=== PATIENT | female | born 1945 | race Caucasian/White ===

== ENCOUNTER 2020-11-26 20:42 | Emergency (ER) | payer MEDICARE, BC ==
[2020-11-26] MEDS ORDERED: Lidocaine 1% 30 ML SDV INJECT ONE (20:56)
[2020-11-26] MEDS ORDERED: Bacitracin Oint 1 GM U/D Packet TOP ONE (21:09)
--- NOTE | 2020-11-26 21:15 | EDM.PDOC ---
ED HPI GENERAL MEDICAL PROBLEM - General Chief Complaint: Laceration Stated Complaint: FISH HOOK IN HAND Time Seen by Provider: 11/26/20 20:55 Source of Information: Reports: Patient History Limitations: Reports: No Limitations - History of Present Illness INITIAL COMMENTS - FREE TEXT/NARRATIVE: This 75 yo female patient reports to the ED with a fishing hook in her left hand. The patient reports she attempted to remove the hook on her own, but was unable to get the hooks out. Onset: Today Duration: Minutes: Location: Reports: Upper Extremity, Left Quality: Reports: Ache Severity: Mild Improves with: Reports: None Worsens with: Reports: None Context: Reports: Activity Associated Symptoms: Reports: No Other Symptoms Past Medical History - Past Health History Medical/Surgical History: Denies Medical/Surgical History Social & Family History - Tobacco Use Tobacco Use Status *Q: Never Tobacco User Second Hand Smoke Exposure: No ED ROS GENERAL - Review of Systems Review Of Systems: Comprehensive ROS is negative, except as noted in HPI. ED EXAM, SKIN/RASH Exam: See Below Exam Limited By: No Limitations General Appearance: Alert, WD/WN, No Apparent Distress Eye Exam: Bilateral Eye: EOMI, Normal Inspection, PERRL Ears: Normal External Exam, Normal Canal, Hearing Grossly Normal, Normal TMs Nose: Normal Inspection, Normal Mucosa, No Blood Throat/Mouth: Normal Inspection, Normal Lips, Normal Teeth, Normal Gums, Normal Oropharynx, Normal Voice, No Airway Compromise Head: Atraumatic, Normocephalic Neck: Normal Inspection, Supple, Non-Tender, Full Range of Motion Respiratory/Chest: No Respiratory Distress, Lungs Clear, Normal Breath Sounds, No Accessory Muscle Use, Chest Non-Tender Cardiovascular: Normal Peripheral Pulses, Regular Rate, Rhythm Extremities: Arm Pain (left hand pain due to fishing hooks in the hand (2nd MCP and 3rd proximal phalange)) Neurological: Alert, Oriented, CN II-XII Intact, Normal Cognition, Normal Gait, Normal Reflexes, No Motor/Sensory Deficits Psychiatric: Normal Affect, Normal Mood Skin: Warm, Dry, Normal Color, No Rash Location, Skin: Upper Extremity, Left Characteristics: Other Lymphatic: No Adenopathy ED SKIN PROCEDURES - Foreign Body Removal Indication:: Fishing hook in left hand Consent Obtained:: Patient Performing Doctor:: Watson Hunter Anesthesia Type: Local (Lidocaine) Findings:: Fishing hooks removed without incident. Complications:: No Course - Vital Signs Last Recorded V/S: Last Vital Signs Temp 97.9 F 11/26/20 20:59 Pulse 68 11/26/20 20:59 Resp 18 11/26/20 20:59 BP 184/78 H 11/26/20 20:59 Pulse Ox 97 11/26/20 20:59 - Orders/Labs/Meds Meds: Medications Discontinued Medications Generic Name Dose Route Start Last Admin Trade Name Gamal PRN Reason Stop Dose Admin Bacitracin 1 dose 11/26/20 21:09 Bacitracin Oint 1 Gm U/D Packet TOP 11/26/20 21:10 ONETIME ONE Lidocaine HCl 30 ml 11/26/20 20:56 11/26/20 20:58 Lidocaine 1% 30 Ml Sdv INJECT 11/26/20 20:57 30 ml ONETIME ONE Administration Departure - Departure Time of Disposition: 21:12 Disposition: Home, Self-Care 01 Condition: Good Clinical Impression: Foreign body of left hand Qualifiers: Encounter type: initial encounter Qualified Code(s): S60.552A - Superficial foreign body of left hand, initial encounter - Discharge Information *PRESCRIPTION DRUG MONITORING PROGRAM REVIEWED*: Not Applicable *COPY OF PRESCRIPTION DRUG MONITORING REPORT IN PATIENT BONNIE: Not Applicable Forms: ED Department Discharge Care Plan Goals: The patient was advised of the examination results during the visit. The fishing hooks were removed without incident after the area was anesthetized. The wounds were dressed with antibiotic ointment and a bandage while in the ED. The patient was encouraged to keep the area clean and dry over the next 24 hours. If the patient has any additional symptoms or concerns, the patient should either return to the emergency department or visit her primary care facility. Sepsis Event Note (ED) - Focused Exam Vital Signs: Vital Signs Temp Pulse Resp BP Pulse Ox 11/26/20 20:59 97.9 F 68 18 184/78 H 97
== END 2020-11-26 21:25 | disposition home or self-care (01) ==
LOC: DL.ED 20:42
DX: S60.552A Superficial foreign body of left hand, initial encounter (principal); W45.8XXA Other foreign body or object entering through skin, initial encounter
CPT/HCPCS: 99282